=== PATIENT | female | born 1970 | race Caucasian/White ===

== ENCOUNTER 2017-07-08 07:07 | Outpatient (CLI) | payer OTHER ==
--- NOTE | 2017-07-08 08:42 | MRI ---
MRI OF THE RIGHT UPPER EXTREMITY WITHOUT CONTRAST: INDICATION: A 47-year-old female status post fall with persistent pain in the right arm since the injury in [facility] er. TECHNIQUE: Multiplanar, multisequence MR images were obtained of the right arm without Iv contrast. A surface m arker was placed within the region of pain in the right arm. This is located on the lateral aspect o f the mid to distal shaft of the right humerus. FINDINGS: Subcutaneous tissues overlying the lateral aspect of the right arm appear within normal limits. The musculature of the right arm appears within normal limits. No definite acute muscular strain is cookie sly evident. The bone marrow signal intensity of the right humerus appears within normal limits. Th ere is no visible fracture or stress reaction demonstrated. No definite enlarged lymph nodes are peter dent. IMPRESSION: 1. No MR explanation for the patient's persistent lateral right arm pain. 2. No MR evidence to indicate muscular strain or stress reaction within the bones of the right arm. POS: BONNIE
== END 2017-07-08 07:08 | disposition home or self-care (01) ==
LOC: MRI 07:07
PROVIDERS: ATTEND Family Medicine
DX: M79.601 Pain in right arm (principal)

== ENCOUNTER 2017-08-26 07:14 | Outpatient (CLI) | payer OTHER ==
--- NOTE | 2017-08-26 08:47 | MRI ---
MRI RIGHT SHOULDER WITHOUT CONTRAST: HISTORY: Limited range of motion. COMPARISON: 07/08/2017 FINDINGS: BICEPS TENDON: There is moderate fluid within the biceps tendon sheath. No tear. GLENOID LABRUM: Superior labral tear, from anterior to posterior. ROTATOR CUFF: There is mild interstitial tearing of the supraspinatus tendon, anterior fibers. Ther e is also low grade undersurface tearing of the anterior 5 mm fibers of the tendon, just proximal to the footplate. The infraspinatus tendon is intact. The subscapularis is intact. MUSCLES: There is some low grade edema within the subscapularis caudal muscle fibers. SOFT TISSUES: Abnormal edema within the rotator interval, with a grade 1 injury of the coracohumeral ligament. BONES: Moderate degenerative disease of the acromioclavicular joint. Type 1 acromion. There is bettina e low grade edema of the greater tuberosity. IMPRESSION: 1. Abnormal fluid signal along the coracohumeral ligament suggesting a grade 1 injury. 2. Abnormal edema along the caudal fibers of the subscapularis muscle suggesting a grade 1 injury. 3. Edema along the anterior margin of the greater tuberosity, which may reflect a contusion, given t he patient's history. 4. Superior labral tear, anterior/posterior, without displaced fibers. 5. Small subacromial/subdeltoid bursal effusion. 6. Undersurface tearing, 20%-25%, of the supraspinatus tendon, just proximal to the footplate, with mild tendinosis. POS: OFF
== END 2017-08-26 07:15 | disposition home or self-care (01) ==
LOC: MRI 07:14
PROVIDERS: ATTEND Family Medicine
DX: M79.601 Pain in right arm (principal); R93.8 Abnormal findings on diagnostic imaging of other specified body structures; R60.0 Localized edema; S43.401A Unspecified sprain of right shoulder joint, initial encounter; M71.811 Other specified bursopathies, right shoulder; S46.811A Strain of other muscles, fascia and tendons at shoulder and upper arm level, right arm, initial encounter